=== PATIENT | female | born 1965 | race Caucasian/White ===

== ENCOUNTER 2017-12-10 06:29 | Inpatient (IN) ==
--- NOTE | 2017-12-09 21:23 | Discharge Summary ---
<Agustin Aguilera - Last Filed: 12/10/17 07:37> Orders not resulted at time of discharge: Pending orders 12/10/17 00:01 XR shoulder complete LT [XR] Routine H/H [Hemoglobin and Hematocrit] [HEME] Routine Date of Encounter: 12/10/17 - Discharge Diagnosis (1) Asthma Priority: Secondary Status: Chronic Qualifiers: Asthma severity: unspecified severity Asthma persistence: unspecified Asthma complication type: unspecified Qualified Code(s): J45.909 - Unspecified asthma, uncomplicated (2) Morbid obesity with BMI of 40.0-44.9, adult Priority: Secondary Status: Chronic (3) Rotator cuff arthropathy of left shoulder Priority: Primary Status: Chronic (4) Status post reverse total replacement of left shoulder Priority: Primary Status: Acute (5) Anxiety Priority: Secondary Status: Chronic - Hospital Course Hospital course: Ms. Prater is a 52 year old female - Time Spent with Patient Total time spent providing and/or coordinating discharge services: - Discharge Medications Home Medications: Cetirizine HCl [Zyrtec] 10 mg PO DAILY 11/15/15 [History] Fluticasone Propionate Nasal [Flonase] 2 spr NS DAILY 11/15/15 [History] Multivitamin [Multi-Day Vitamins] 1 each PO DAILY 11/15/15 [History] OxyCODONE Immed Rel [Roxicodone 5 MG] 5 mg PO Q6HR PRN 7 Days #28 tablet [Rx] Albuterol Sulfate [Proair Hfa] 1 puff IH Q4HR PRN 12/10/17 [History] Cetirizine HCl [Zyrtec] 10 mg PO DAILY 12/10/17 [History] Cholecalciferol (Vitamin D3) [Vitamin D3] 5,000 unit PO DAILY 12/10/17 [History] HYDROcodone/Acet 5/325 mg [[place] 5-325 mg] 1 tab PO Q6H PRN 12/10/17 [History] Lidocaine [Aspercreme] 1 each TP BID PRN 12/10/17 [History] Pregabalin [Lyrica] 50 mg PO DAILY 12/10/17 [History] Allergies/Adverse Reactions: 3 Allergy/AdvReac Type Severity Reaction Status Date / Time Buspirone [From BuSpar] AdvReac Nausea Verified 11/15/15 13:38 cefdinir [From Omnicef] AdvReac Rash Verified 11/15/15 13:38 sertraline [From Zoloft] AdvReac Nausea Verified 11/15/15 13:38 tramadol AdvReac Headache Verified 11/15/15 13:38 venlafaxine [From Effexor] AdvReac Nausea Verified 11/15/15 13:38 Primary care physician: Karen Farr CNP - Patient Status Disposition: Home, Self-Care Condition: Good - Discharge Instructions Follow Up With: Agustin Aguilera MD [Partnered Physician] - 12/10/17 4:20 pm Concepcion Davies PAC [Physician News Broadcaster] - 12/20/17 1:30 pm Karen Farr CNP [Primary Care Provider] - 12/25/17 11:15 am Additional Instructions: Discharge Instructions: Total Shoulder Please call [facility] ([phone]), your Primary Care Physician, or report to the Emergency Room if you have any of the following symptoms: Nausea, vomiting, fever greater that 101.5, swelling, chest pain, shortness of breath, increased pain/redness/drainage/odor for your incision site, numbness/ tingling, or any other concerning symptoms. ACTIVITY: Always keep your arm in the sling. Do not raise your arm away from your body. Do not use your arm to help with getting in or out of bed. No weight bearing permitted. Only perform those exercises given to you by your therapist. Incentive Spirometer 10 times an hour. MEDICATIONS: Upon discharge resume your home medications. Take all the medications as prescribed. Take a stool softener if taking narcotic pain medications. Stool softeners are only effective if you drink enough fluids. Drink 6-8 glass of water or fluids a day, unless this is not allowed for another health problem. Despite using stool softeners, if you haven't had a bowel movement in 3 days, please switch to a gentle laxative. Gentle laxatives are sold over the counter. You should have a bowel movement within 24 hours, if not call the office. You will be discharged from the hospital with a prescription for pain medication. You are encouraged to decrease the use of narcotic pain medication as tolerated. Should you require a refill, please call the office. [facility] prescribes narcotic pain medication for only 4-6 weeks after surgery. If you require pain medication beyond this time period, you may be referred to your Primary Care Physician or to the Pain Clinic for further evaluation. Plan ahead for refills on pain medication as many narcotics either need to be picked up at the office or mailed. It is best to call 48-72 hours in advance of needing a prescription refill so you don't run out of medication. To help control the post-operative pain, you may take NSAIDs (Aleve,Advil, Motrin, Ibuprofen, Naprosyn) or Tylenol as prescribed on the bottle in addition to the pain medication. WOUND CARE: Leave the dressing on for 7-10 days. You may change the dressing if it becomes saturated greater than 50%. Do not get the dressing wet at anytime. Wash your hands with antibacterial soap, rinse and dry prior to any wound care. If you have gisela the visiting nurse or rehab facility can remove the stapes 10-14 days after surgery and place steri-strips across the wound. Leave the steri-strips in place until they fall off on their own. You may let water from the shower run on top of the steri-strips. If you do not have a visiting nurse or rehab facility, you will need to return to the office at 10-14 days for the gisela to be removed. If you have itching or redness around the dressing call the office. FOLLOW-UP: Please follow up with your surgeon in the orthopedic clinic, as scheduled <Concepcion Davies - Last Filed: 12/10/17 18:23> Orders not resulted at time of discharge: Pending orders 12/10/17 00:01 XR shoulder complete LT [XR] Routine H/H [Hemoglobin and Hematocrit] [HEME] Routine Date of Encounter: 12/10/17 Time of Encounter: 18:17 - Discharge Diagnosis (1) Status post reverse total replacement of left shoulder Priority: Primary Status: Acute Comments: Opsite dressing, leave intact until first post-operative visit. Zipline and Gisela in place, plan to remove at post-operative day #14-16. If dressing becomes >50% saturated, contact office, remove dressing and place appropriate dressing in its place. Do not allow for dressing to get wet. Shoulder Precautions x 6 weeks. Apply cold therapy wrap 3-6x/day for 20 minutes at a time. Encourage ambulation throughout the day. Use Incentive spirometer 10x/hour. Elevate affected extremity above heart as tolerated. NWB to affected upper extremity x 6 weeks. Will remove brace at first post-operative appointment. OK to remove during PT/ OT and Home exercises. (2) Rotator cuff arthropathy of left shoulder Priority: Primary Status: Chronic (3) Anxiety Status: Chronic (4) Asthma Status: Chronic Qualifiers: Asthma severity: unspecified severity Asthma persistence: unspecified Asthma complication type: unspecified Qualified Code(s): J45.909 - Unspecified asthma, uncomplicated (5) Morbid obesity with BMI of 40.0-44.9, adult Priority: Secondary Status: Chronic - Hospital Course Hospital course: Ms. Prater is a 52 year old female, status post Left TSR-reverse. Patient had uneventful postoperative course. Stable for discharge. Patient seen at bedside, without complaints. A&O x 3 Afebrile, vital signs stable. Vital Signs Temp Pulse Resp BP Pulse Ox 12/10/17 10:45 97.6 F 72 16 121/74 97 12/10/17 10:00 97.4 F L 73 15 111/73 96 12/10/17 09:54 94 12/10/17 09:45 97.4 F L 74 16 114/77 98 12/10/17 09:35 98.3 F 82 16 140/80 98 12/10/17 09:20 80 16 134/78 98 12/10/17 09:10 80 16 150/90 97 12/10/17 09:00 98.3 F 87 20 101/71 98 12/10/17 07:33 77 16 173/99 99 12/10/17 07:07 98.1 F 79 18 155/91 95 Intake and Output 12/10/17 12/10/17 12/10/17 07:59 15:59 23:59 Intake Total 240 / 240 Output Total 100 / 100 Balance 140 / 140 Intake: Oral 240 / 240 Output: Estimated Blood Loss 100 / 100 Other: Meal Lunch Percent of Meal Consumed 100% # Voids 1 Weight 121.109 kg Patient Weight 12/10/17 23:59 Weight 121.109 kg Labs reviewed. H/H - stable, asymptomatic Short CBC 09/10/18 Range/Units 09:30 Hgb 12.2 (11.5-15.4) g/dL Hct 36.1 (35.3-44.9) % Pain control: adequate Participating in PT. All questions and concerns addressed. Educated on use of incentive spirometer. Encouraged ambulation and proper hydration. Patient educated on post-operative restrictions and post-operative care. Assessment and plan: Continue with postoperative care Discharge plan: Home , discharge today with outpatient. - Time Spent with Patient Total time spent providing and/or coordinating discharge services: Date of admission: 12/10 Primary care physician: Karen Farr CNP Discharging clinician: Agustin Aguilera Anticipated date of discharge: 12/10/17 - Patient Status Functional capacity at discharge: independent ambulation Overall status at discharge: patient is back to baseline - Diet and Activity Activity: as per physical therapy Diet: advance to your usual diet
--- NOTE | 2017-12-10 06:52 | History & Physical Report ---
Date of Encounter: 12/10/17 Time of Encounter: 06:52 24 Hour HP Update - Instructions Instructions: If the History and Physical is less than 30 days old and was completed prior to A.M. admission and or procedure and has NOT been updated on calendar day of procedure please complete this update prior to performing procedure. - Update Patient reports changes in Medical Condition: No Changes in examination, assessment, or condition: No Changes in Medication: No Preop tests/diagnostics Reviewed: Yes Surgery Remains Indicated: Yes Consent for Planned Operative Procedure(s) Verified: Yes - Pre-Operative Checklist Preoperative Checklist Indicated: No Prophylactic Antibiotic Ordered: Yes Is VTE Prophylaxis Indicated?: Yes
--- NOTE | 2017-12-10 07:05 | Anesthesia Evaluation PreOp ---
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: Other (ARTHRITIS, CHRONIC PAIN) Other Medical History: GERD (OCCASIONAL, OMEPRAZOLE PRN), Other (MORBID OBESITY , BMI 41) Anesthesia History: No Prior Anesthetic Complications, Past Anesthesia (SEVERAL , LEMUEL KNEES) Alcohol Use: none Drug use: none Medications and Allergies Albuterol Sulfate [Albuterol Inhaler] 2 puff IH Q4HR PRN 11/15/15 [History] Cetirizine HCl [Zyrtec] 10 mg PO DAILY 11/15/15 [History] DULoxetine [Cymbalta] 30 mg PO DAILY 11/15/15 [History] Fluticasone Propionate Nasal [Flonase] 2 spr NS DAILY 11/15/15 [History] Gabapentin [Neurontin] 300 mg PO DAILY PRN 11/15/15 [History] Multivitamin [Multi-Day Vitamins] 1 each PO DAILY 11/15/15 [History] Omeprazole [PriLOSEC] 20 mg PO BID 11/15/15 [History] OxyCODONE Immed Rel [Roxicodone 5 MG] 5 mg PO Q6HR PRN 7 Days #28 tablet [Rx] 3 Allergy/AdvReac Type Severity Reaction Status Date / Time Buspirone [From BuSpar] AdvReac Nausea Verified 11/15/15 13:38 cefdinir [From Omnicef] AdvReac Rash Verified 11/15/15 13:38 sertraline [From Zoloft] AdvReac Nausea Verified 11/15/15 13:38 tramadol AdvReac Headache Verified 11/15/15 13:38 venlafaxine [From Effexor] AdvReac Nausea Verified 11/15/15 13:38 - Meds/Allergy Pre-op Review Medications Reviewed: Yes Allergies Reviewed: Yes Anesthesia Results - Labs Laboratory Last Values WBC 7.0 K/mcL (4.3-11.1) 12/07/17 10:30 RBC 4.21 M/mcL (3.82-4.97) 12/07/17 10:30 Hgb 12.5 g/dL (11.5-15.4) 12/07/17 10:30 Hct 37.6 % (35.3-44.9) 12/07/17 10:30 MCV 89.3 fL (83.0-100.0) 12/07/17 10:30 MCH 29.7 pg (28.0-33.3) 12/07/17 10:30 MCHC 33.2 g/dL (31.6-35.5) 12/07/17 10:30 RDW 12.8 % (11.5-14.5) 12/07/17 10:30 Plt Count 347 K/mcL (140-400) 12/07/17 10:30 MPV 9.3 fL (9.4-12.4) L 12/07/17 10:30 Immature Gran % 0.3 % (0-4) 12/07/17 10:30 Seg Neutrophils % 59.5 % 12/07/17 10:30 Lymphocytes % 29.6 % 12/07/17 10:30 Monocytes % 9.7 % 12/07/17 10:30 Eosinophils % 0.0 % 12/07/17 10:30 Basophils % 0.9 % 12/07/17 10:30 Neutrophils # 4.2 K/mcL (1.6-8.9) 12/07/17 10:30 Lymphocytes # 2.1 K/mcL (0.6-4.6) 12/07/17 10:30 Monocytes # 0.7 K/mcL (0.0-1.3) 12/07/17 10:30 Eosinophils # 0.0 K/mcL (0.0-0.6) 12/07/17 10:30 Basophils # 0.1 K/mcL (0.0-0.2) 12/07/17 10:30 PT 12.0 Seconds (9.4-12.1) 12/07/17 10:30 INR 1.1 12/07/17 10:30 APTT 38.1 Seconds (26.0-36.0) H 12/07/17 10:30 Sodium 137 mEq/L (136-145) 12/07/17 10:30 Potassium 4.0 mEq/L (3.5-5.1) 12/07/17 10:30 Chloride 100 mEq/L (98-107) 12/07/17 10:30 Carbon Dioxide 29 mEq/L (23-29) 12/07/17 10:30 BUN 13 mg/dL (6-20) 12/07/17 10:30 Creatinine 0.79 mg/dL (0.60-1.20) 12/07/17 10:30 Est GFR ( Amer) > 60 (> 60) 12/07/17 10:30 Est GFR (Non-Af Amer) > 60 (> 60) 12/07/17 10:30 BUN/Creatinine Ratio 16 (6-26) 12/07/17 10:30 Serum , Qual Negative (Negative) 12/07/17 10:30 Anesthesia Exam O2 Sat Height 1.73 m Height 1.73 m Weight 121.109 kg Weight 121.109 kg O2 Sat by Pulse Oximetry 95 Vital Signs Temp Pulse Resp BP Pulse Ox 98.1 F 79 18 155/91 95 12/10/17 07:07 12/10/17 07:07 12/10/17 07:07 12/10/17 07:07 12/10/17 07:07 NPO (# of Hours): 8 - HEENT Mallampati: II Teeth: Normal Oral Opening: Greater than 3 - Cardiac Rhythm: Regular - Pulmonary Breath Sounds: bilateral Clear Respiratory Effort: Symmetrical Anesthesia Assess/Plan ASA Score: 2 Modified Con Scale for Level of Consciousness: Cooperative, oriented, and tranquil Anesthetic Plan: General, Regional (FOR POSTOPERATIVE PAIN) Monitoring Plan: Standard Monitors Recovery Plan: PACU Anes Supervising Prov Stmt: [employer] LIST NOT UPDATED THIS VISIT PATIENT'S CHART AND CURRENT MEDICATIONS REVIEWED
[2017-12-10] MEDS ORDERED: Clindamycin 900 MG/50 ML 900 MG/50 ML IV.SOLN IVPB ONE (07:12)
[2017-12-10] MEDS ORDERED: Ethanol\\Acetic Acid\\Na Ace\\Ben 1,000 ML IRRIG.SOLN IR ONE (07:12)
[2017-12-10] MEDS ORDERED: *HR* FentaNYL (PF) 100 MCG/2 ML VIAL ONE (07:14)
[2017-12-10] MEDS ORDERED: *HR* Midazolam HCl 2 MG/2 ML VIAL ONE (07:14)
[2017-12-10] MEDS ORDERED: Ringers Solution, Lactated 1,000 ML IVC SCH ×2 (07:15→10:05)
[2017-12-10] MEDS ORDERED: *HR* Propofol 200 MG/20 ML VIAL IVP ONE (07:15)
[2017-12-10] MEDS ORDERED: Lidocaine -MPF 2% 2 ML VIAL ONE (07:16)
[2017-12-10] MEDS ORDERED: Lidocaine -MPF 4% 5 ML AMPUL ONE (07:16)
[2017-12-10] MEDS ORDERED: Dexamethasone 4 MG/ML VIAL ONE (07:23)
[2017-12-10] MEDS ORDERED: Ketorolac 30 MG/ML VIAL ONE (07:23)
[2017-12-10] MEDS ORDERED: Ondansetron 4 MG/2 ML VIAL ONE (07:23)
[2017-12-10] MEDS ORDERED: *HR* Rocuronium Bromide 50 MG/5 ML VIAL ONE (07:23)
[2017-12-10] MEDS ORDERED: *HR* Succinylcholine 200 MG/10 ML VIAL IVP ONE (07:23)
[2017-12-10] MEDS ORDERED: *HR* Promethazine 25 MG/ML VIAL IVP PRN (07:27)
[2017-12-10] MEDS ORDERED: *HR* OxyCODONE Immed Rel 5 MG TABLET PO PRN ×2 (07:27→10:05)
[2017-12-10] MEDS ORDERED: *HR* HYDROmorphone (PF) 1 MG/ML SYRINGE IVP PRN (07:27)
[2017-12-10] MEDS ORDERED: *HR* HYDROmorphone 2 MG TABLET PO PRN (07:27)
[2017-12-10] MEDS ORDERED: ROPIVACAINE HCL/PF 0.5% 30 ML VIAL ONE (07:32)
[2017-12-10] MEDS ORDERED: Bupivacaine/Clonidine Syringe 1 EACH SYRINGE ONE (07:32)
[2017-12-10] MEDS ORDERED: Famotidine 20 MG/2 ML VIAL ONE (07:38)
[2017-12-10] MEDS ORDERED: Acetaminophen IV 1,000 MG/100 ML INFUS..BTL ONE (07:38)
--- NOTE | 2017-12-10 08:10 | Anesthesia Procedures ---
Date of Encounter: 12/10/17 Time of Encounter: 08:08 Procedures: Anesthesia - Nerve Block Procedure Date: 12/10/17 Time: 07:30 Allergies/Adv Reactions: Buspirone [From BuSpar] Adverse Reaction (Verified 11/15/15 13:38) Nausea cefdinir [From Omnicef] Adverse Reaction (Verified 11/15/15 13:38) Rash sertraline [From Zoloft] Adverse Reaction (Verified 11/15/15 13:38) Nausea tramadol Adverse Reaction (Verified 11/15/15 13:38) Headache venlafaxine [From Effexor] Adverse Reaction (Verified 11/15/15 13:38) Nausea Pre-op Diagnosis: left shoulder rotator cuff arthropathy Surgical Procedure: left shoulder reverse ball Checklist: Correct Patient Identifier, Correct procedure, History checked Correct side: Left Blood Thinner: No Monitor Applied: EKG, BP, Pulse Oximetry Indication: Post Op Analgesia Pre-op Neuro Deficits: No Block Type: Supraclavicular (30cc 0.2% ropi), Other (intercostobrachial 5cc 0.25 % bupivicaine) Sterile Technique: Yes Ultrasound used: Yes Anatomy identified: Yes Visual spread of Local: Yes Neuro Stimulation: No Blood on Needle Aspiration: No Smooth Injection of Local: Yes Pain with Injection of Local: No Prep: Chlorhexadine Needle: 22 x 50 mm Stimuplex Local: 0.25% Bupivicaine w/Clonidine 20 mcg/cc, Ropivacaine Volume (cc): 35 Number of Attempts: 1 Complications: None/effective block
[2017-12-10] MEDS ORDERED: EPHEDrine 50 MG/ML VIAL ONE (08:13)
--- NOTE | 2017-12-10 08:37 | Orthopedic Operative Note ---
Date of procedure: 12/10/17 Pre-op diagnosis: Left shoulder cuff tear arthropathy Post-op diagnosis: same Procedure: Procedure: Total Shoulder Replacment Reverse, left Estimated blood loss: 100 cc Hardware: Metal and polyethylene replacement: Arthrex 24 mm +2 mm 25 mm screw attachment glenoid baseplate, 2 4.5 screws. 2 5.5 screw, 39+4 glenosphere, 7 humeral stem, poly insert 6 Exam Under anesthesia: Full motion no instability Procedural Notes: Grade 4 arthritic changes humeral head glenoid socket, rotator cuff tear. Operative procedure: The patient was brought to the operating room and placed on the operating room table. After general anesthesia was administered the operative shoulder was examined. Findings were noted. The patient was placed in the modified beachchair position. All pressure points were padded appropriately. And the head was stabilized in the neutral position. The operative extremity was prepped and draped in the sterile surgical fashion. The patient received IV antibiotics prior to skin incision. A standard deltopectoral approach was made to the operative shoulder. Incision was made to the skin and subcutaneous tissue,hemo stasis was obtained with Bovie cautery. Using careful blunt dissection the cephalic vein was identified and mobilized medially. The deltopectoral interval was developed and the clavipectoral fascia was incised. The subscap was released off the lesser tuberosity and tagged with #2 FiberWire suture subscap was irreparable. The humerus was dislocated patient noted to have tear supraspinatus tendon, and the humeral cut was made along the anatomic neck. Patient noted to have grade 4 arthritic changes head. Anterior and posterior Bankart retractors were placed to expose the glenoid. Patient is to have grade 4 arthritic changes glenoid socket. The glenoid guide was seated and the centering hole was made. It was reamed with the appropriate reamer. 24 mm +2 with a 25 mm screw attachment baseplate was seated and secured with (2) 4.5 screws and 2 5.5 screw. The baseplate was irrigated and dried and the 39+4 Glenosphere was seated and secured with the Robledo taper. The Robledo taper was tested and found to be secure the humerus was redislocated and prepared with the diaphyseal reamers, followed by a broaching process up to the appropriate size 7 in the patient's anatomic version. The metaphyseal reamer was then utilized. Trial reduction found the shoulder to be relocatable. Trial components were removed and the 7 stem was impacted in place in the patient's anatomic version. Trial reduction found the shoulder to be relocatable and stable with the appropriate 6 Magy Trial component was removed and the real implant was seated and secured the shoulder was reduced. The shoulder had excellent motion and excellent stability and no evidence of dislocation. The deep tissue was irrigated with pulse irrigation. The PA close the shoulder. The deltopectoral interval was closed with a running #1 PDS suture, subcutaneous tissue was irrigated and closed with 0 PDS suture, the skin was closed with skin thomas. The patient was placed in a sterile dressing, abduction brace and extubated. The patient was then transferred to the recovery room in stable condition. Anesthesia: RAE Surgeon: Agustin Aguilera Was there an preschool assistant principal present: Yes [employer]or Reconnaissance Vehicle Driver: Concepcion Davies Estimated blood loss (cc): 100 Condition: stable Disposition: PACU
[2017-12-10 09:40] LABS: Hematocrit 36.1 % (35.3-44.9); Hemoglobin 12.2 g/dL (11.5-15.4)
[2017-12-10] MEDS ORDERED: Multivit/Ca/Min/Fe/FA 1 TAB TABLET PO SCH (10:05)
[2017-12-10] MEDS ORDERED: Clindamycin 900 MG/50 ML 900 MG/50 ML IV.SOLN IVPB SCH (10:05)
[2017-12-10] MEDS ORDERED: Ondansetron 4 MG/2 ML VIAL IVP PRN (10:05)
[2017-12-10] MEDS ORDERED: Cholecalciferol (D-3) 1,000 UNIT TABLET PO SCH (10:05)
[2017-12-10] MEDS ORDERED: MOM Conc 10 ML UD.LIQ PO PRN (10:05)
[2017-12-10] MEDS ORDERED: Sennosides 8.6 MG TABLET PO PRN (10:05)
[2017-12-10] MEDS ORDERED: Acetaminophen 325 MG TABLET PO PRN (10:05)
[2017-12-10] MEDS ORDERED: (Lidocaine [Aspercreme] 1 EACH) TP PRN (10:05)
[2017-12-10] MEDS ORDERED: *HR* OxyCODONE/APAP 5/325 TABLET PO PRN (10:05)
[2017-12-10] MEDS ORDERED: Naloxone 0.4 MG/ML INJ IVP PRN (10:05)
[2017-12-10] MEDS ORDERED: Fluticasone Propionate Nasal 50 MCG/SPRAY BOTTLE NS SCH (10:05)
[2017-12-10] MEDS ORDERED: Pregabalin 50 MG CAPSULE PO SCH (10:05)
[2017-12-10] MEDS ORDERED: Loratadine 10 MG TABLET PO SCH (10:05)
[2017-12-10] MEDS ORDERED: NON-FORMULARY MEDICATION 1 EACH EACH (Cetirizine Hcl [Zyrtec] 10 MG) PO SCH (10:05)
[2017-12-10 11:21] VITALS: BP 121/74
[2017-12-10] MEDS ORDERED: *HR* Enoxaparin 30 MG/0.3 ML SYRINGE SQ ONE (12:05)
--- NOTE | 2017-12-10 17:07 | Anesthesia Evaluation Post Op ---
Date of Encounter: 12/10/17 Time of Encounter: 09:26 - Discharge PostOp Status: Transfer Patient to floor (Patient's vital signs have been reviewed. Patient is stable postoperatively and has adequately recovered from anesthesia. Patient is determined to have stable airway patency and respiratory function including respiratory rate and oxygen saturation. Patient has a stable heart rate, blood pressure and adequate hydration. Patients mental status is acceptable. Patients temperature is appropriate. Pain and nausea are adequately controlled.)
[2017-12-10] MEDS ORDERED: *HR* Enoxaparin 30 MG/0.3 ML SYRINGE SQ SCH ×2 (18:00)
[2017-12-10] MEDS ORDERED: Temazepam 15 MG CAPSULE PO PRN (21:00)
== END 2017-12-10 18:15 | disposition home or self-care (01) | DRG 315 ==
LOC: SAMDAY 06:29 → 3NENU 09:58
PROVIDERS: ADMIT Orthopaedic Surgery; ATTEND Orthopaedic Surgery